=== PATIENT | female | born 1975 | race Caucasian/White ===

== ENCOUNTER 2019-02-04 05:50 | Day surgery (SDC) | payer OTHER ==
[2019-02-04] MEDS ORDERED: MIDAZOLAM 1 MG/ML 2 ML INJ (08:20)
[2019-02-04] MEDS ORDERED: FENTAnyl 50 MCG/ML VIAL (08:20)
== END 2019-02-04 10:48 | disposition home or self-care (01) ==
LOC: GIL 05:50
DX: K21.9 Gastro-esophageal reflux disease without esophagitis (principal); K29.60 Other gastritis without bleeding
CPT/HCPCS: 43239; 84703; 88305; 88312